=== PATIENT | male | born 1970 | race Caucasian/White ===

== ENCOUNTER 2017-03-17 12:18 | Emergency (ER) | payer OTHER ==
[~2017-03-17] VITALS: Ht 188 cm; Wt 84.1 kg
[2017-03-17 12:18] VITALS: BP 117/74
[2017-03-17] MEDS ORDERED: KETOROLAC 60 MG/2 ML VIAL (J1885) IM ONE (13:15)
[2017-03-17] MEDS ORDERED: NORCOTAB PO (14:11)
[2017-03-17] MEDS ORDERED: ROBA500T PO (14:11)
[2017-03-17] MEDS ORDERED: IBUP80TA PO (14:11)
--- NOTE | 2017-03-17 14:37 | REP ---
LUMBOSACRAL SPINE: Five views of the lumbosacral spine performed. There is no compression fracture or malalignment. There is no spondylolysis or spondylolisthesis. There is mild spurring of L5. There is mild disc space narrowing and subchondral sclerosis at L5-S1 with sclerosis at the posterior facet joints. The posterior elements are intact. IMPRESSION: Degenerative changes. No acute fracture or dislocation. Signed by Wan Serrato MD 03/17/2017 04:45 P
== END 2017-03-17 14:23 | disposition home or self-care (01) ==
LOC: M ED 12:18
DX: S39.012A Strain of muscle, fascia and tendon of lower back, initial encounter (principal); X50.0XXA Overexertion from strenuous movement or load, initial encounter; Y92.89 Other specified places as the place of occurrence of the external cause; Y93.89 Activity, other specified; Y99.0 Civilian activity done for income or pay; E78.00 Pure hypercholesterolemia, unspecified; M54.16 Radiculopathy, lumbar region; M54.42 Lumbago with sciatica, left side; G89.11 Acute pain due to trauma; F17.200 Nicotine dependence, unspecified, uncomplicated; Z88.0 Allergy status to penicillin
CPT/HCPCS: 72110; 96372; 99282; J1885

== ENCOUNTER 2017-03-24 22:20 | Emergency (ER) | payer OTHER ==
[~2017-03-24] VITALS: Ht 185.4 cm; Wt 80.0 kg
[2017-03-24 22:20] VITALS: BP 135/76
[~2017-03-24 22:20] MED LIST: IBUP80TA PO; NORCOTAB PO; ROBA500T PO
[2017-03-25] MEDS ORDERED: LIDO5DIS41 TD (02:26)
[2017-03-25] MEDS ORDERED: KETOROLAC 60 MG/2 ML VIAL (J1885) IM ONE (02:30)
== END 2017-03-25 02:39 | disposition home or self-care (01) ==
LOC: M ED 22:20
DX: G89.29 Other chronic pain (principal); M51.36 Other intervertebral disc degeneration, lumbar region; F17.200 Nicotine dependence, unspecified, uncomplicated; Z88.0 Allergy status to penicillin
CPT/HCPCS: 96372; 99282; J1885

== ENCOUNTER 2017-03-31 10:50 | Emergency (ER) | payer OTHER ==
[~2017-03-31] VITALS: Ht 188 cm; Wt 84.1 kg
[~2017-03-31 10:50] MED LIST changes: +LIDO5DIS41 TD
[2017-03-31 10:59] VITALS: BP 139/75
[2017-03-31] MEDS ORDERED: NORCO, ANEXSIA 5/325MG TABLET (HYDROcodone/ACETAMINOPHEN) PO ONE (12:30)
== END 2017-03-31 12:33 | disposition home or self-care (01) ==
LOC: M ED 10:50
DX: S39.012A Strain of muscle, fascia and tendon of lower back, initial encounter (principal); X50.9XXA Other and unspecified overexertion or strenuous movements or postures, initial encounter; Y92.9 Unspecified place or not applicable; Y93.H9 Activity, other involving exterior property and land maintenance, building and construction; Y99.0 Civilian activity done for income or pay; F41.9 Anxiety disorder, unspecified; I25.2 Old myocardial infarction; F17.210 Nicotine dependence, cigarettes, uncomplicated; Z88.0 Allergy status to penicillin

== ENCOUNTER 2017-06-05 20:39 | Emergency (ER) | payer OTHER ==
[~2017-06-05] VITALS: Ht 188 cm; Wt 84.1 kg
[2017-06-05] MEDS ORDERED: PERCOCET 5MG/325MG TAB PO ONE (22:30)
[2017-06-05] MEDS ORDERED: IBUP-1114 PO (22:31)
[2017-06-05] MEDS ORDERED: CYCL10TA PO (22:31)
[2017-06-05] MEDS ORDERED: NORC1TAB4 PO (22:31)
[2017-06-05] MEDS ORDERED: CYCLOBENZAPRINE 10 MG TAB PO ONE (23:15)
[2017-06-05 23:43] VITALS: BP 126/82
== END 2017-06-05 23:44 | disposition home or self-care (01) ==
LOC: M ED 20:39
DX: M62.830 Muscle spasm of back (principal); G89.29 Other chronic pain; M54.9 Dorsalgia, unspecified; W19.XXXA Unspecified fall, initial encounter; Y92.89 Other specified places as the place of occurrence of the external cause; Y93.89 Activity, other specified; Y99.8 Other external cause status; F33.9 Major depressive disorder, recurrent, unspecified; F17.210 Nicotine dependence, cigarettes, uncomplicated; B07.0 Plantar wart; Z88.0 Allergy status to penicillin

== ENCOUNTER 2017-10-30 12:36 | Emergency (ER) | payer OTHER ==
[2017-10-30 14:34] LABS: BASO % 0.3 % (0.0-1.0); EOS # 0.7 10^3/uL (0.0-0.50); HEMATOCRIT 41.6 % (42.0-52.0); HEMOGLOBIN 14.9 g/dl (14.0-18.0); IMMATURE GRANULOCYTE % 0.4 % (0-3.0); MEAN CORPUSCULAR HEMOGLOBIN 30.1 pg (27.0-33.0); MEAN CORPUSCULAR HGB CONC 35.8 g/dl (32.0-36.5); MONO # 1.1 10^3/uL (0.0-0.8); MONO % 9.4 % (0.0-5.0); NEUTROPHILS # 7.9 10^3/uL (1.8-7.7); NEUTROPHILS % 66.9 % (36.0-66.0); PLATELET COUNT, AUTOMATED 282 10^3/uL (150-450); RED BLOOD COUNT 4.95 10^6/uL (4.30-6.10); RED CELL DISTRIBUTION WIDTH 12.4 % (11.5-14.5); WHITE BLOOD COUNT 11.9 10^3/uL (4.0-10.0)
[2017-10-30 14:40] LABS: ANION GAP 7 MEQ/L (8-16); BLOOD UREA NITROGEN 10 MG/DL (7-18); C REACTIVE PROTEIN QUANTITATIV 0.88 MG/DL (0.00-0.30); CALCIUM LEVEL 8.2 MG/DL (8.5-10.1); CARBON DIOXIDE LEVEL 24 MEQ/L (21-32); CHLORIDE LEVEL 109 MEQ/L (98-107); CREATININE FOR GFR 0.97 MG/DL (0.70-1.30); GLOMERULAR FILTRATION RATE > 60.0 (>60); GLUCOSE, FASTING 126 MG/DL (70-100); POTASSIUM SERUM 3.8 MEQ/L (3.5-5.1); SODIUM LEVEL 140 MEQ/L (136-145)
[2017-10-30] MEDS: CLINDAMYCIN 300 MG in APPROPRIATE DILUENT 1 EA IV (15:00)
[2017-10-30 15:06] LABS: ERYTHROCYTE SEDIMENTATION RATE 4 mm/hr (0-15)
== END 2017-10-30 17:02 | disposition home or self-care (01) ==
LOC: M ED 12:36
DX: L03.115 Cellulitis of right lower limb (principal); R21 Rash and other nonspecific skin eruption; I25.10 Atherosclerotic heart disease of native coronary artery without angina pectoris; I25.2 Old myocardial infarction; E78.5 Hyperlipidemia, unspecified; R51 Headache; F17.210 Nicotine dependence, cigarettes, uncomplicated; Z88.0 Allergy status to penicillin
CPT/HCPCS: 80048

== ENCOUNTER 2018-02-12 13:39 | Emergency (ER) | payer OTHER | END 2018-02-12 15:10 | disposition home or self-care (01) | LOC: M ED 13:39 | DX: M54.5 Low back pain (principal); G89.29 Other chronic pain; R20.2 Paresthesia of skin; I25.2 Old myocardial infarction; E78.00 Pure hypercholesterolemia, unspecified; F17.200 Nicotine dependence, unspecified, uncomplicated; Z88.0 Allergy status to penicillin; Z79.899 Other long term (current) drug therapy | CPT/HCPCS: 99282 ==